=== PATIENT | male | born 1945 | race Caucasian/White ===

== ENCOUNTER 2020-11-22 00:25 | Emergency (ER) | payer MEDICARE, OTHER, SELFPAY ==
[2020-11-22 00:25] VITALS: BP 160/70; PULSE 76; RESP 18; TEMP 36.6; O2SAT 98; BMI 32.9
[2020-11-22] MEDS: FLUORESCEIN 1 MG STRIP EYE-BOTH (00:48)
[2020-11-22] MEDS: PROPARACAINE 0.5% OPHTH SOL 1 DROPS EYE-RIGHT (01:01)
--- NOTE | 2020-11-22 01:07 | ED_ITS ---
HPI - General Adult General Chief complaint: Eye Problems Stated complaint: right eye red/swollen cataract sgy two days ago Time Seen by Provider: 11/22/20 00:41 Source: patient Mode of arrival: Ambulatory Limitations: no limitations History of Present Illness HPI narrative: Patient is a 75-year-old male who 2 days ago underwent a right sided cataract repair. He stated that just prior to the surgery he did have a cold sore in his right upper lip but he stated that the operative provider did not seem to think that it would cause any issues. 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 He has had shingles in the past. When he took the bandage off of his right eye there was redness under the right eye and also some irritation just at the corner of his right eye. He contacted the provider on-call who according to the patient told him to start taking 800 mg of acyclovir 9 times a day. He states that the redness and discomfort on his right cheek has happened to him in the past. He states that in the past this was diagnosed as shingles. Review of Systems Constitutional Constitutional: Denies fever(s) Eyes Comments: Irritation to right eye ENT Ears, Nose, Mouth, and Throat: Reports system reviewed and no additional complaints, except as documented Musculoskeletal Musculoskeletal: Denies tingling Integumentary/Breasts Comments: Redness to right cheek Neurologic Neurologic: Denies tingling Hematologic/Lymphatic On Anticoagulants: No Allergic/Immunologic Allergic/Immunologic: Reports system reviewed and no additional complaints, except as documented Patient History Medical History Cataract Herpes zoster Social History Smoking Status: Never smoker Smoking Status: Never smoker alcohol intake frequency: a few times a month Substance Use Type: does not use Exam Initial Vital Signs Initial Vital Signs: Vital Signs Temperature 97.9 F 11/22/20 00:25 Pulse Rate 76 11/22/20 00:25 Respiratory Rate 18 11/22/20 00:25 Blood Pressure 160/70 H 11/22/20 00:25 Pulse Oximetry 98 11/22/20 00:25 Const General: cooperative and comfortable Limitations: mental status not altered HENWA Head: normal to inspection and normocephalic Ears: TM's normal bilaterally Nose: external nose normal Face and sinus: normal facial exam Mouth: oral mucosae normal Throat: posterior oropharynx normal Eyes Conjunctivae: conjunctivae normal Sclera: sclerae normal Cornea: corneas normal and fluorescein used Pupils: PERRL EOM: EOM intact bilaterally Other: Patient does have a slight area of redness along the lateral canthus. Resp Effort & Inspection: normal respiratory effort Cardio Rate: regular rate Skin Other: Patient does have redness along the right cheek. No vesicle seen. Extrem General: normal to inspection and capillary refill normal Course Orders Ordered: Discontinued Medications Fluorescein Sodium (Fluorescein 1 Mg Strip) 1 mg EYE-BOTH NOW ONE Stop: 11/22/20 00:43 Last Admin: 11/22/20 00:48 Dose: 1 mg Documented by: DEN Proparacaine HCl (Proparacaine 0.5% Ophth Mita) 1 drops EYE-RIGHT NOW ONE Stop: 11/22/20 00:43 Last Admin: 11/22/20 01:01 Dose: 2 drop Documented by: DEN Vital Signs Vital signs: Vital Signs - 8 hr 11/22/20 00:25 Temperature 97.9 F Pulse Rate 76 Respiratory Rate 18 Blood Pressure 160/70 H Pulse Oximetry 98 Medical Decision Making MDM Narrative Medical decision making narrative: Patient's bilateral tympanic membranes are unremarkable. No lesions on his nose. He does have redness on his right cheek without any vesicles and also some redness along the lateral canthus of the right eye. There is no uptake with the for seen staining. There is no drainage from the right eye. And the patient not stated that he has had symptoms like this in the past that have been diagnosed with shingles would have had more concerned that his presenting symptoms are the result of irritation from the tape that he was using to hold the patch over his right eye. Patient states that he was told by the operative providers that he was to start taking his 800 mg acyclovir 9 times a day. Informed patient that he should continue to follow all of the post procedure instructions given to him. I did give him instructions of how we would normally start acyclovir which would be 1 tablet 5 times a day for the next 7 days but also informed him that he should follow the instructions given to him by his operative provider. Patient does not require admission to the hospital based on his symptoms today. He was given return precautions. Instructed to contact his operative provider tomorrow for follow- up. He expressed understanding and agreement. Discharge Plan Departure Patient Disposition: Home Clinical Impression: Herpes zoster Instructions: DI for Shingles Activity Restrictions/Additional Instructions: Like we discussed here in the emergency department because if your prior history of having a diagnosis of shingles that would be a concern based on your presentation today. This could also be irritation from the tape or from the procedure itself. It does not involve the right eyeball itself. We normally would recommend acyclovir 800 mg by mouth 5 times a day for 10 days based on your symptoms however if your provider's office recommended that you take a different course of this medication I would follow their instructions. I also recommend that you follow all of the instructions given to you with regard to your cataract surgery. I recommend that you contact your provider again tomorrow to speak with him directly. Return to the emergency department for any new symptoms.
== END 2020-11-22 01:16 | disposition home or self-care (01) ==
PROVIDERS: Emergency Provider Emergency Medicine
DX: B02.9 Zoster without complications (principal); H53.9 Unspecified visual disturbance
CPT/HCPCS: 99282

== ENCOUNTER → 2022-02-21 07:32 | Outpatient (CLI) | payer MEDICARE, OTHER, SELFPAY ==
[2022-02-21 09:33] LABS: Add Manual Diff / Slide Review NO; Basophils Absolute Auto 0 /uL (0-100); Basophils Percent Auto 0.2 % (0-2); Eosinophils Absolute Auto 0 /uL (0-450); Eosinophils Percent Auto 0.6 % (2-4); Hematocrit 39.9 % (41-53); Hemoglobin 13.9 g/dL (13.5-17.5); Lymphocytes Absolute Auto 700 /uL (1100-4500); Lymphocytes Percent Auto 10.4 % (25-40); Mean Corpuscular HGB Conc 34.9 % (30-36); Mean Corpuscular Hemoglobin 32.8 PG (26-34); Mean Corpuscular Volume 93.9 fL (80-100); Monocytes Absolute Auto 200 /uL (0-900); Monocytes Percent Auto 3.6 % (3-14); Neutrophils Absolute Auto 5700 /uL (1500-7000); Neutrophils Percent Auto 85.2 % (50-75); Platelet Count 135 X10^3/uL (150-400); Red Blood Cell Count 4.25 X10^6/uL (4.5-5.9); Red Cell Distribution Width 12.5 % (11.6-14.8); White Blood Cell Count 6.6 X10^3/uL (4.5-11.0)
[2022-02-21 09:36] LABS: Appearance Urine UA CLEAR; Bilirubin Urine UA NEGATIVE (NEGATIVE); Color Urine UA YELLOW; Glucose Urine UA NEGATIVE (Negative); Ketones Urine UA NEGATIVE (NEGATIVE); Leukocyte Esterase Urine UA TRACE (NEGATIVE); Nitrite Urine UA NEGATIVE (Negative); Occult Blood Urine UA 3+ (Negative); Protein Urine UA NEGATIVE (Negative); Urobilinogen Urine UA 0.2 E.U./dL (0.2); pH Urine UA 6.5 (4.5-8.0)
[2022-02-21 09:37] LABS: Hemoglobin A1C% w Est Avg Glu 4.9 % (4.0-6.0)
[2022-02-21 09:46] LABS: Bacteria Urine None Seen; Culture Indicated Urine Cult Not Indicated; RBC Urine 5-10/HPF (0-5/HPF); Squamous Epithelial Cell Urine 1-5 /HPF (0-5/HPF); WBC Urine 0-1/HPF (0-5/HPF)
[2022-02-21 09:54] LABS: Erythrocyte Sedimentation Rate 1 MM/HR (0-15)
[2022-02-21 10:09] LABS: Alanine Aminotransferase 21 IU/L (<50); Albumin 4.3 g/dL (3.5-5.0); Albumin Globulin Ratio 1.7 (1.0-2.8); Alkaline Phosphatase 72 U/L (38-126); Aspartate Aminotransferase 19 IU/L (17-59); BUN Creatinine Ratio 26.7 (6-22); Bilirubin Total 0.5 mg/dL (0.2-1.3); Blood Urea Nitrogen 23 mg/dL (9-20); Calcium 8.7 mg/dL (8.4-10.2); Carbon Dioxide 24 mmol/L (22-32); Chloride 101 mmol/L (98-107); Estimated Glomerular Filt Rate > 60 mL/min (>60); Globulin 2.6 g/dL (1.7-4.1); Glucose 104 mg/dL (80-110); HEMOLYSIS < 15 (0-50); Potassium 4.6 mmol/L (3.4-5.1); Sodium 138 mmol/L (137-145); Total Protein 6.9 g/dL (6.3-8.2)
[2022-02-21 10:15] LABS: High Sensitivity CRP - Cardiac < 0.3 mg/L (1.0-3.0)
[2022-02-21 10:18] LABS: Rheumatoid Factor < 8.6 IU/mL (<12.0)
[2022-02-21 10:40] LABS: TSH w/ Reflex to FT4 1.44 uIU/mL (0.47-4.68)
[2022-02-24 23:27] LABS: CCP Antibodies IgG/IgA 2 units (0-19)
== END ==
PROVIDERS: Referring Provider Family Medicine; Visit Provider Family Medicine
DX: E03.9 Hypothyroidism, unspecified (principal); R79.9 Abnormal finding of blood chemistry, unspecified; M48.10 Ankylosing hyperostosis [Forestier], site unspecified; M25.50 Pain in unspecified joint; R30.0 Dysuria; R20.0 Anesthesia of skin; R20.2 Paresthesia of skin
CPT/HCPCS: 36415; 80053; 81001; 83036; 84443; 85025; 85651; 86140; 86200; 86430